=== PATIENT | male | born 1970 | race Caucasian/White ===

== ENCOUNTER 2025-08-20 00:12 | Emergency (ER) | payer SELFPAY ==
[~2025-08-20] VITALS: Ht 172.7 cm; Wt 82.0 kg
[2025-08-20 00:14] VITALS: O2SAT 95
[2025-08-20 00:51] LABS: BASOPHILS % 0.9 % (0.0-2.0); EOSINOPHILS % 3.8 % (0.0-5.0); HEMATOCRIT. 43.4 % (42.0-52.0); HEMOGLOBIN. 14.1 g/dL (14.0-18.0); LYMPHOCYTES % 42.8 % (20.0-50.0); MEAN PLATELET VOLUME 8.2 fl (7.4-10.4); MONOCYTES % 8.2 % (2.0-8.0); NEUTROPHILS % 44.3 % (40.0-76.0); PLATELET 226 x1000/uL (130-400); RED BLOOD CELL COUNT 4.53 mill/uL (4.7-6.1); RED CELL DISTRIBUTION WIDTH 13.3 % (11.6-14.6)
[2025-08-20 01:14] LABS: CREATININE 1.0 mg/dL (0.6-1.3)
[2025-08-20 01:15] LABS: TROPONIN I HIGH SENSITIVITY 13 ng/L (3.0-53); UREA NITROGEN BLOOD 9 mg/dL (9-23)
[2025-08-20 01:16] LABS: ASPARTATE AMINOTRANSFERASE 20 IU/L (<34)
[2025-08-20 01:17] LABS: BILIRUBIN DIRECT < 0.1 mg/dL (<=3.0); BILIRUBIN TOTAL 0.3 mg/dL (0.1-1.0); PROTEIN TOTAL 6.8 g/dL (6.0-8.3)
[2025-08-20 01:40] VITALS: BP 104/64; PULSE 90; RESP 13; TEMP 36.7; O2SAT 98
== END 2025-08-20 01:45 | disposition home or self-care (01) ==
LOC: ER 00:29 → CMPBEDREQ 08:04
DX: R55 Syncope and collapse (principal); R42 Dizziness and giddiness; R06.02 Shortness of breath; I10 Essential (primary) hypertension; Z79.899 Other long term (current) drug therapy
CPT/HCPCS: 36415; 71045; 80048; 80076; 80320; 83735; 83880; 84484; 85025; 93005; 99285; G0480